=== PATIENT | female | born 1995 ===

== ENCOUNTER → 2025-03-30 08:42 | Outpatient (BNV) | payer OTHER, SELFPAY | PROVIDERS: Visit Provider Radiology Diagnostic Radiology | DX: N92.1 Excessive and frequent menstruation with irregular cycle (principal) | CPT/HCPCS: 76830; 76856 ==

== ENCOUNTER 2025-03-30 09:05 | Outpatient (REF) | payer OTHER, SELFPAY ==
--- NOTE | ~2025-03-30 | US_ITS ---
EXAMINATION: US PELVIS CLINICAL INFORMATION: Irregular menses. COMPARISON: None available. TECHNIQUE: Ultrasound of the pelvis is performed using both transabdominal and transvaginal transducers along with Doppler. Transvaginal imaging is performed due to inadequate visualization transabdominally. FINDINGS: Uterus: The uterus is anteflexed and measures 8.0 x 4.2 x 4.8 cm. The double wall endometrial thickness is mm. The uterus is smooth in contour and has normal myometrial echogenicity. No visible fibroid. Adnexa: Both ovaries are visualized. There is normal color flow to the adnexa. There is no ovarian torsion. There is no pelvic ascites or fluid collection. Right ovary measures 3.8 x 2.7 x 2.3 cm. Left ovary measures 2.5 x 1.6 x 1.4 cm. US/US pelvic and transvaginal IMPRESSION: Unremarkable pelvic ultrasound. Electronically signed by: Trace Navarro MD 03/30/2025 10:52 AM JULIETH
--- OUTSIDE RECORDS SUMMARY | 2025-03-30 09:34 | XMS_ITS | Encounter Summary ---
Author Organization [facility] Address [address] [place] [address] Phone Care Team Providers Care Tile Molder Name Role Phone Obed Breen DO Primary Care Provider [phone] Reason for Referral * MRI/CAT Scan - Pending Review Specialty Diagnoses / Procedures Referred By Contac t Referred To Contact Radiology Diagnoses Segmental and somatic dysfunction of thoracic region Procedures MRI Chest Obed Breen DO [address] [place] [address] Phone: tel: fax: [email or web address]:[email or web address] Referral ID Status Reason Start Date Expiration Date V isits Requested Visits Authorized [id number] Pending Review 03/12/2025 1 1 Encounter Details Date Type Department Care Team (Late st Contact Info) Description 03/12/2025 Transcribe Orders Virtual Department [address] [place] [id number] Obed Breen DO [address] [place] [address] Segmental and somatic dysfunction of thoracic region (Primary Dx) Social History Tobacco Use Types Packs/Day Years Used Date Smoking Tobacco: Never Assessed Comments Unknown Sex and Gender Information Value Date Recorded Sex Assigned at Not on file Legal Sex Female 4:12 PM EST Gender Identity Not on file Sexual Orientation Not on file documented as of this encounter Plan of Treatment Upcoming Encounters Date Type Department Care Team (Late st Contact Info) Description 03/12/2025 Procedure Pass [facility], [facility] [address] [place] [address] 06/02/2025 2:40 PM EST Appointment [facility], Mri - [facility] [address] [place] [address] Obed Breen DO [address] [place] [address] [email or web address] Scheduled Orders Name Type Priority Associated Diagnoses Orde r Schedule MRI Chest Imaging Routine Segmental and somatic dysfunction of thoracic region Expected: 03/12/2025, Expires: 03/12/2026 documented as of this encounter Visit Diagnoses Diagnosis Segmental and somatic dysfunction of thoracic region- Primary documented in this encounter Care Teams Tile Molder Relationship Specialty Start Date End Date Obed Breen DO [address] [place] [address] [email or web address] PCP - General Family Medicine 03/18/25 documented as of this encounter Additional Source Comments The information contained in this document represents components of the legal health record. It is not the complete legal health record.[facility]
--- OUTSIDE RECORDS SUMMARY | 2025-03-30 09:35 | XMS_ITS | Clinical Summary ---
Author Organization [facility] Address [address] [place] [address] Phone Care Team Providers Care Technician Test Systems Name Role Phone Obed Breen DO Primary Care Provider [phone] Encounters Date Type Department Care Team Description 03/12/2025 Transcribe Orders Virtual Department [address] [place] [address] Obed Breen DO Segmental and somatic dysfunction of thoracic region (Primary Dx) from Last 3 Months Social History Tobacco Use Types Packs/Day Years Used Date Smoking Tobacco: Never Assessed Education Answer Date Recorded Are you interested in more education? Not on thai e 03/19/2025 Are you concerned about learning? Not on file 03/19/2025 No 03/19/2025 No 03/19/2025 Digital Access Answer Date Recorded No 03/19/2025 No 03/19/2025 Reliable internet access at home? Not on file 03/19/2025 Device with a working camera? Not on file Comments Unknown Sex and Gender Information Value Date Recorded Sex Assigned at Not on file Legal Sex Female 4:12 PM EST Gender Identity Not on file Sexual Orientation Not on file Plan of Treatment Upcoming Encounters Date Type Department Care Team (Late st Contact Info) Description 03/12/2025 Procedure Pass [address] [address] 06/02/2025 2:40 PM EST Appointment [address] [address] Obed Breen DO [address] [place] [address] Medical Devices Not on file Care Teams Technician Test Systems Relationship Specialty Start Date End Date Obed Breen DO [address] [place] [id number] [email or web address] PCP - General Family Medicine 03/18/25 Additional Source Comments The information contained in this document represents components of the legal health record. It is not the complete legal health record.[facility]
== END 2025-03-30 09:06 | disposition home or self-care (01) ==
LOC: HO.UMASIMG 09:05
PROVIDERS: Visit Provider Nurse Practitioner Women's Health
DX: N92.6 Irregular menstruation, unspecified (principal)
CPT/HCPCS: 76830; 76856

== ENCOUNTER 2025-04-15 19:16 | Outpatient (REF) | payer OTHER, SELFPAY ==
--- NOTE | ~2025-04-15 | MR_ITS ---
EXAMINATION: MR THORACIC SPINE WITHOUT CONTRAST CLINICAL INFORMATION: Back pain. COMPARISON: None available. TECHNIQUE: MRI of the thoracic spine was obtained using routine sequences without contrast. FINDINGS: Patient's motion artifact. No bone marrow STIR signal abnormality. Superior endplate compression deformity representing 20% volume loss without retropulsion at T5 vertebra. Normal alignment. Thoracic spinal cord caliber and signal is normal. Conus medullaris ends at pedicle of L1 with normal signal. No cord compression or disc herniation from T1 to T12. No prevertebral compartment hematoma, mass or fluid collection. MR/MR thoracic spine wo con IMPRESSION: Superior endplate old compression deformity representing 20% volume loss without retropulsion at T5. No cord edema, myelopathy or syrinx. No disc herniation or cord compression. Electronically signed by: Prasad Thomason MD 04/16/2025 06:15 AM [email or web address]
--- OUTSIDE RECORDS SUMMARY | 2025-04-15 10:47 | XMS_ITS | Encounter Summary ---
Author Organization [facility] Address [address] [place] [address] Phone Care Team Providers Care Supervisor Type Photography Name Role Phone Obed Breen Primary Care Provider [phone] Reason for Visit * Reason Comments Back Pain Encounter Details Date Type Department Care Team (Late st Contact Info) Description 04/15/2025 10:47 AM EST - 04/15/2025 1:26 PM EST Emergency [facility] [address] [place] [address] Jose Francisco Hamilton MD [address] [place] [address] [email or web address] Discharge Disposition: Home or Self Care Social History Tobacco Use Types Packs/Day Years Used Date Smoking Tobacco: Never Assessed Education Answer Date Recorded Are you interested in more education? Not on thai e 03/19/2025 Are you concerned about learning? Not on file 03/19/2025 No 03/19/2025 No 03/19/2025 Food Answer Date Recorded Within the past 6 months we worried whether our food would run out before we got money to buy more. I choose not to answer 04/15/2025 Within the past 6 months the food we bought just didn't last and we didn't have enough money to get more. I choose not to answer 04/15/2025 Residential Stability Answer Date Recor ded What is your housing situation today? I choose n ot to answer 04/15/2025 How many times have you move d in the past 12 months? I choose not to answer 04/15/2025 Paying for Meds Answer Date Recorded Do you have trouble paying for medicines? I hollie se not to answer 04/15/2025 Paying Utility Bills Answer Date Record ed Do you have trouble paying y our heating or electricity bill? I choose not to answer 04/15/2025 Transportation Answer Date Recorded Has the lack of transportati on kept you from medical appointments or from getting medications? I choose not to answer 04/15/2025 Digital Access Answer Date Recorded No 04/15/2025 No 04/15/2025 Do you have reliable internet access at home? I choose not to answer 04/15/2025 Do you have a device (e.g., phone, tablet, computer) with a working camera? I choose not to answer 04/15/2025 Intimate Partner Violence Answer Date R ecorded Are you denied basic needs s uch as food, clothing, or medical care? No 04/15/2025 In the past 12 months have y ou been in a relationship with a person who hurts, threatens, or tries to control you? No 04/15/2025 Are you denied basic needs s uch as food, clothing, or medical care? No 04/15/2025 In the past 12 months have y ou been in a relationship with a person who hurts, threatens, or tries to control you? No 04/15/2025 Comments Unknown Sex and Gender Information Value Date Recorded Sex Assigned at Female 04/15/2025 9:38 AM EST Legal Sex Female 4:12 PM EST Gender Identity Female 04/15/2025 9:38 AM EST Sexual Orientation Straight 04/15/2025 11 :21 AM EST documented as of this encounter Last Filed Vital Signs Vital Sign Reading Time Taken Comments Blood Pressure 121/78 04/15/2025 1:25 PM EST Pulse 88 04/15/2025 1:25 PM EST Temperature 36.7 C (98.1 F) 04/15/2025 1:25 PM EST Respiratory Rate 18 04/15/2025 1:25 PM EST Oxygen Saturation 99% 04/15/2025 1:25 PM EST Inhaled Oxygen Concentration - - Weight 72 kg (158 lb 11.7 oz) 04/15/2025 9:37 AM EST Height 162.6 cm (5' 4 ) 04/15/2025 9:37 AM EST Body Mass Index 27.25 04/15/2025 9:37 AM EST documented in this encounter Functional Status * Calculated C-SSRS Risk Score (Lifetime/Recent) Answer Date of Assessment Author No Risk Indicated 04/15/2025 11:22 AM Angela De La Cruz RN * [place] Suicide Severity Rating Scale (Screener/Recent Self-Report) Question Answer Date of Assessment Author 1. Wish to be (Past 1 Month) No 11:22 AM Angela Hein RN 2. Non-Specific Active Suici kiki Thoughts (Past 1 Month) No 04/15/2025 11:22 AM Muna Hein RN 6. Suicidal Behavior (Lifetime) No 11:22 AM Angela Hein RN documented as of this encounter Discharge Instructions * Discharge Instructions* Namita Stovall PA-C - 04/15/2025 1:09 PM EST You have a reassuring medical exam. No signs of serious underlying pathology or neurologic compromise. Keep your MRI appointment to determine cause of pain. Treatment plan: -Rest and avoid aggravating activities. Avoid bending, twisting, heavy lifting. Walking is encouraged. It will likely take a few weeks for your pain to resolve. This is normal. -Take over the counter Tylenol 1000 mg every 8 hours (not exceeding more than 3000mg in 24 hours ascan cause severe liver damage). -Take prednisone course as prescribed for 5 days. -When you have completed the prednisone, you may then start taking Toradol as prescribed if you have severe pain. Do not take prednisone and Toradol at the same time as it can cause stomach upset. Donot take other NSAIDs like ibuprofen, Motrin, Aleve while taking Toradol as it can cause kidney problems. -Consider use of ocdm-mpw-dckwomv lidocaine patch, brand name Salonpas, use as directed. -Apply ice or heat to the area for 20 minutes at a time 4 times daily as needed. -Gentle range of motion exercises as your symptoms begin to resolve, walking is encouraged. Follow-up with your sports medicine doctor/primary care doctor. Return to the emergency department if you have significant worsening of your symptoms including worsening/severe pain, develop fever, dysfunction of your bladder or bowels (such as new retention or incontinency), weakness of your lower extremities, or other concerning symptoms. I hope you feel better! * Attachments The following attachments cannot be sent through Care Everywhere. * Back Pain (Hungarian) documented in this encounter Medications at Time of Discharge ketorolac (TORADOL) 10 mg tablet Take 1 tablet (10 mg total) by mouth every 6 (six) hours as needed for pain (specific location in comments). 10 tablet 04/20/2025 predniSONE (DELTASONE) 20 MG tablet Take 2 tablets (40 mg total) by mouth daily with breakfast for 5 days. 10 tablet 04/15/2025 documented as of this encounter ED Notes * Jadyn Nelson, RN - 04/15/2025 1:26 PM EST ED Discharge Nursing Note pt left ed with steady gait. VS at discharge were WNL for patient. Pt serrano x 4, neuro intact. All questions at discharge answered. * Katerin Carpenter RN - 04/15/2025 9:31 AM EST Pt states I have been experiencing shoulder pain for many days and also back pain as well. I have seen my doctor and I have not had any improvement and that is why I came to the emergency room. Theyhave done an Xray but they have not seen anything. They suspect muscle pain.I have been given Ibuprofen to take and I have not seen any results. I have had 6-7 months I have had been going through this. I was told to have an MRI. They gave me an appointment in May. I am not able to wait that long because of how severe the pain is. Pt reports low back pain as well. Pt reporting pain throughout my whole back and my spine as well. Sitting for a long time is difficult. Pt has had a course oPT. Pt has tried acupuncture. Pt is in no apaprent distress and ambulates with normal steady gait. Pt denies numbness or itngling. Pt denies urinary or bowel incontinence. Hungarian dress operator used for triage assessment. Pt prefers female provider. * Namita Stovall PA-C - 04/15/2025 9:23 AM EST Chief Complaint Chief Complaint Patient presents with Back Pain History of Present Illness The patient, Varsha Maddox,is a 30 y.o. female who presents for evaluation of Back Pain The patient reports to the emergency department for chronic upper back/left shoulder pain. Professional Hungarian dress operator utilized during this encounter. Patient is accompanied by her who also participates in history. Patient reports about 6 to 7 months of pain in thoracic back between shoulder blades, also with some pain into left neck and shoulder. Occasional pain radiation into left upper arm. Pain has worsened since onset months ago. Currently rated 8/10. Pain is worse with movement, better at rest, though it does seem to bother her at night when tryingto sleep. No recent trauma, though reports about 7 years ago she had a bad fall on stairs that resulted in pain in mid back. She denies fever, headache, chest pain, shortness of breath, low back pain, extremity numbness or weakness, bladder or bowel dysfunction, saddle anesthesia, drug use. Reports she has been seen outpatient multiple times for this complaint including with a sports medicine doctor who performed an x-ray that did not show any explanation. An MRI was ordered but will not be done until June 02. [facility] and is worried about the flight due to the level of pain she is in. She had been prescribed meloxicam once daily which she has been taking and it does not provide muchrelief. Unless otherwise specified, I have reviewed and agree with the triage and nursing notes. ROS A ten point review of systems was negative except what was noted in the HPI. Review of Systems Past Medical History No past medical history on file. Past Surgical History No past surgical history on file. Home Medications Prior to Admission medications Medication Sig ketorolac (TORADOL) 10 mg tablet 10 mg, Oral, Every 6 hours PRN predniSONE (DELTASONE) 20 MG tablet 40 mg, Oral, Daily with breakfast Allergies No Known Allergies Social and Family History Social History Tobacco Use Smoking status: Not on file Smokeless tobacco: Not on file Substance Use Topics Alcohol use: Not on file Social History Substance and Sexual Activity Drug Use Not on file No family history on file. Physical Exam Vital Signs: ED Triage Vitals [04/15/25 0937] Encounter Vitals Group BP 125/85 Girls Systolic BP Percentile Girls Diastolic BP Percentile Boys Systolic BP Percentile Boys Diastolic BP Percentile Heart Rate 62 Respiratory Rate 18 Temperature 36.4 ??C (97.5 ??F) Temp Source Tympanic SpO2 100 % Weight 158 lb 11.7 oz Height 5' 4 Head Circumference Peak Flow Pain Score Pain Loc Pain Education Exclude from Growth Chart Physical Exam Vitals and nursing note reviewed. Constitutional: General: She is not in acute distress. Appearance: Normal appearance. She is not ill-appearing or diaphoretic. Comments: Patient appears comfortable and in no apparent pain HENT: Head: Atraumatic. Nose: Nose normal. Mouth/Throat: Mouth: Mucous membranes are moist. Eyes: Extraocular Movements: Extraocular movements intact. Conjunctiva/sclera: Conjunctivae normal. Pupils: Pupils are equal, round, and reactive to light. Neck: Comments: + Spurling to left Cardiovascular: Rate and Rhythm: Normal rate and regular rhythm. Pulses: Normal pulses. Heart sounds: Normal heart sounds. Pulmonary: Effort: Pulmonary effort is normal. Breath sounds: Normal breath sounds. Musculoskeletal: General: Normal range of motion. Cervical back: Normal range of motion and neck supple. No tenderness. Comments: Appropriate curvature and posture of spine. No ecchymosis, step-off, or gross deformity noted. No midline point bony tenderness of spine. No tenderness to palpation of the paraspinous muscles ofthe spine. Spinal mobility normal. Normal AROM and 5/5 strength of the upper and lower extremities bilaterally. Sensation intact to light touch. Extremities are warm and well perfused. Ambulatory. Skin: General: Skin is warm and dry. Neurological: General: No focal deficit present. Mental Status: She is alert and oriented to person, place, and time. Psychiatric: Mood and Affect: Mood normal. Behavior: Behavior normal. Laboratory Testing No results found for this visit on 04/15/25. Radiology Testing No orders to display ED Medication from 04/15/2025 0923 to 04/15/2025 1346 Date/Time Order Dose Route Action Action by Comments 04/15/2025 1316 EST ketorolac (TORADOL) injection 30 mg 30 mg Intramuscular Given Jadyn Nelson RN -- [facility] Assessment and Plan: Patient presents emergency department for evaluation of left shoulder/thoracic back pain x several months. Patient is well-appearing with stable vital signs. There is no indication of traumatic etiology and no midline cervical tenderness, so x-ray and CT imaging not indicated. No headache or fever or risk factors such as immunodeficiency or IVDU to suggest infectious etiology. Extremity is neurova scularly intact with full range of motion and strength of bilateral upper extremities with extremities being well perfused. No neurologic deficits to indicate cord compression. No headache, visual disturbance, jaw or ear pain to indicate rheumatologic disease. Patient symptoms seem most consistent with strain versus possible cervical radiculopathy. She was given Toradol. Will trial on course of prednisone, also sent in Toradol to use as needed after prednisone completion. Encouraged to follow-up with her ortho specialist for further evaluation and management and keep MRI scheduled for May. Given strict return precautions. Patient understands and agrees to plan. Discharged stable condition. Risks of Complications, Morbidity, or Mortality: Risks: Necessity for prescription medication was discussed. Clinical Impressions as of 04/15/25 1346 Upper back pain Critical Care Time: 0 minutes Clinical Impression Diagnosis Description Comment Final diagnosis Upper back pain Upper back pain -- Disposition: Home Namita Stovall PA-C 04/15/25 1357 * Jose Francisco Hamilton MD - 04/15/2025 9:23 AM EST ED Course Clinical Impressions as of 04/15/25 1407 Upper back pain Attestation: I have reviewed and agree with the history, physical exam, medical decision making and plan for thepatient as documented by the APC. As necessary, I have appended the note with my suggestions, comments or clarification to their assessment and plan in the note above. Risks of Complications, Morbidity, or Mortality: Risks: Necessity for prescription medication was discussed. Jose Francisco Hamilton MD 04/15/25 1407 documented in this encounter Plan of Treatment Upcoming Encounters Date Type Department Care Team (Late st Contact Info) Description 03/12/2025 Procedure Pass [address] [address] 06/02/2025 2:40 PM EST Appointment [address] [address] Obed Breen DO [address] [place] [address] [email or web address] documented as of this encounter Visit Diagnoses Diagnosis Upper back pain- Primary Unspecified backache documented in this encounter Administered Medications Inactive Administered Medications - up to 3 most recent administrations Medication Order MAR Action Action Date Dose Rate Site ketorolac (TORADOL) injection 30 mg 30 mg, Intramuscular, Once, On Loree 04/15/25 at 1315, For 1 dose Given 04/15/2025 1:16 PM EST 30 mg Left Deltoid documented in this encounter Active and Recently Administered Medications Times are shown in EST. Scheduled Medication Order 04/13/2025 04/14/2025 04/15/2025 ketorolac (TORADOL) injection 30 mg (COMPLETED) 30 mg, Intramuscular, Once, On Loree 04/15/25 at 1315, For 1 dose 1316 (Given - Provid er: Jadyn Nelson RN) documented in this encounter Care Teams Supervisor Type Photography Relationship Specialty Start Date End Date Obed Breen DO [address] [place] [address] [email or web address] PCP - General Family Medicine 03/18/25 documented as of this encounter Additional Source Comments The information contained in this document represents components of the legal health record. It is not the complete legal health record.[facility]
--- OUTSIDE RECORDS SUMMARY | 2025-04-15 20:00 | XMS_ITS | Clinical Summary ---
Author Organization [facility] Address [address] [place] [address] Phone Care Team Providers Care Line Assembly Utility Worker Name Role Phone Obed Breen DO Primary Care Provider [phone] Allergies No known active allergies Medications predniSONE (DELTASONE) 20 MG tablet Take 2 tablets (40 mg total) by mouth daily with breakfast for 5 days. 10 tablet 5 04/20/20 25 Active ketorolac (TORADOL) 10 mg tablet Take 1 tablet (10 mg total) by mouth every 6 (six) hours as needed for pain (specific location in comments). 10 tablet 5 Active Encounters Date Type Department Care Team Description 04/15/2025 10:47 AM EST - 04/15/2025 1:26 PM EST Emergency [facility] [address] [place] [address] Jose Francisco Hamilton MD Discharge Disposition: Home or Self Care 04/07/2025 Transcribe Orders [facility] [address] [place] [address] Margarette Cross, FITNESS AND WELLNESS INSTRUCTOR 03/12/2025 Transcribe Orders Virtual Department [address] [place] [address] Obed Breen DO Segmental and somatic dysfunction [...] Orientation Straight 04/15/2025 11 :21 AM EST Last Filed Vital Signs Vital Sign Reading [...] Mass Index 27.25 04/15/2025 9:37 AM EST Plan of Treatment Upcoming Encounters Date Type Department Care Team (Late st Contact Info) Description 03/12/2025 Procedure Pass [address] [address] 06/02/2025 2:40 PM EST Appointment [address] [address] Obed Breen, DO [address] [place] [id number] [email or web address] Health Maintenance Due Date Last Done Comments Adult Td,Tdap Booster 1997 DEPRESSION SCREENING 2009 SMOKING Hx and SMOKELESS TOB ACCO SCREENING 2010 HEPATITIS C SCREENING 2015 HIV ONE-TIME SCREENING (18-6 5 YEARS) 2015 PAP SMEAR 2018 INFLUENZA VACCINE (#1) 2024 COVID-19 VACCINE ( - 2024-2 6 season) 2024 HEPATITIS A VACCINES Aged Out No long er eligible based on patient's age to complete this topic HIB VACCINES Aged Out No longer eligi ble based on patient's age to complete this topic MENINGOCOCCAL VACCINES (ACWY) Aged Out No longer eligible based on patient's age to complete this topic MENINGOCOCCAL VACCINES (B) Aged Out N o longer eligible based on patient's age to complete this topic PNEUMOCOCCAL VACCINES (0-49 years) Aged Out No longer eligible based on patient's age to complete this topic Medical [place] [address] [place] [address] [employer] [address] [facility] [place] [address] [employer] [facility] [employer] YULIA MCKEONFLEET Care Teams Line Assembly Utility Worker Relationship Specialty Start Date End Date Obed Breen DO [address] [place] [id number] PCP - General Family Medicine 03/18/25 Additional Source Comments The information contained in this document represents components of the legal health record. It is not the complete legal health record.[facility]
--- OUTSIDE RECORDS SUMMARY | 2025-04-15 20:00 | XMS_ITS | Encounter Summary ---
Author Organization [facility] Address [address] [place] [address] Phone Care Team Providers Care Contact Lens Fitter Name Role Phone Obed Breen DO Primary Care Provider [phone] Reason for Referral * MRI/CAT Scan - Pending Review Specialty Diagnoses / Procedures Referred By Contalanis t Referred To Contact Radiology Diagnoses Segmental and somatic dysfunction of thoracic region Procedures MRI Chest Obed Breen DO [address] [place] [address] Phone: tel: fax: [email or web address] Referral ID Status Reason Start Date Expiration Date V isits Requested Visits Authorized [id number] Pending Review 03/12/2025 1 1 Encounter Details Date Type Department Care Team (Late st Contact Info) Description 03/12/2025 Transcribe Orders Virtual Department [address] [place] [address] Obed Breen DO [address] [place] [address] [email or web address] Segmental and somatic dysfunction of thoracic region [...] AM EST documented as of this encounter Plan of Treatment Upcoming Encounters Date Type Department Care Team (Late st Contact Info) Description 03/12/2025 Procedure Pass [address] [address] 06/02/2025 2:40 PM EST Appointment [address] [address] Obed Breen DO [address] [place] [address] [email or web address] Scheduled Orders Name Type Priority Associated Diagnoses Orde r Schedule MRI Chest Imaging Routine Segmental and somatic dysfunction of thoracic region Expected: 03/12/2025, Expires: 03/12/2026 documented as of this encounter Visit Diagnoses Diagnosis Segmental and somatic dysfunction of thoracic region- Primary documented in this encounter Care Teams Contact Lens Fitter Relationship Specialty Start Date End Date Obed Breen DO [address] [place] [address] [email or web address] PCP - General Family Medicine 03/18/25 documented as of this encounter Additional Source Comments The information contained in this document represents components of the legal health record. It is not the complete legal health record.[facility]
== END 2025-04-15 19:17 | disposition home or self-care (01) ==
LOC: HO.MRI 19:16
PROVIDERS: PCP Family Medicine; Visit Provider Family Medicine
DX: M54.6 Pain in thoracic spine (principal)
CPT/HCPCS: 72146

== ENCOUNTER → 2025-04-15 19:27 | Outpatient (BNV) | payer OTHER, SELFPAY | PROVIDERS: PCP Family Medicine; Visit Provider Radiology Diagnostic Radiology | DX: M54.6 Pain in thoracic spine (principal) | CPT/HCPCS: 72146 ==